=== PATIENT | female | born 1940 | race Caucasian/White ===

== ENCOUNTER 2022-01-18 00:37 | Emergency (ER) | payer OTHER, MEDICAID ==
[~2022-01-18] VITALS: Ht 160 cm; Wt 80.0 kg
[2022-01-18] MEDS ORDERED: ONDANSETRON HCL 4MG/2ML INJ IV STA (01:28)
[2022-01-18] MEDS ORDERED: MORPHINE SULFATE 4 MG/ML CPJ (NOT FOR IM USE) IV STA (01:28)
[2022-01-18 01:53] LABS: CLARITY URINE CLEAR (CLEAR); COLOR URINE YELLOW (YELLOW); KETONES URINE TRACE (NEGATIVE); LEUKOCYTE ESTERASE URINE 2+ (NEGATIVE); NITRITE URINE NEGATIVE (NEGATIVE); OCCULT BLOOD URINE NEGATIVE (NEGATIVE); PH URINE 6.5 (4.5-8.0); PROTEIN URINE NEGATIVE (NEGATIVE); SPECIFIC GRAVITY URINE 1.018 (1.005-1.030)
[2022-01-18 02:34] LABS: BASOPHILS % 0.2 % (0.0-2.0); EOSINOPHILS % 0.7 % (0.0-5.0); HEMATOCRIT. 34.9 % (36.0-48.0); HEMOGLOBIN. 11.7 g/dL (12.0-16.0); LYMPHOCYTES % 19.8 % (20.0-50.0); MEAN CORPUSCULAR VOLUME 92.3 fL (81.0-99.0); MEAN PLATELET VOLUME 9.4 fl (7.4-10.4); MONOCYTES % 5.5 % (2.0-8.0); NEUTROPHILS % 73.8 % (40.0-76.0); PLATELET 241 x1000/uL (130-400); RED BLOOD CELL COUNT 3.78 mill/uL (4.2-5.4); RED CELL DISTRIBUTION WIDTH 13.5 % (11.6-14.6)
[2022-01-18 02:45] LABS: CHLORIDE 100 mEq/L (98-107)
[2022-01-18] MEDS ORDERED: SODIUM CHLORIDE 0.9% 1000ML BAG (SEPSIS BOLUS) IV NR (03:00)
[2022-01-18] MEDS ORDERED: VANCOMYCIN 1.25GM PMX (XELLIA) 250 ML IV NR (03:00)
[2022-01-18] MEDS ORDERED: PIPERACILLIN/TAZOBACTAM 3.375GM/50ML PREMIX IV ONE (03:00)
[2022-01-18] MEDS ORDERED: PIPERACILLIN/TAZ 3.375G PREMIX 50 ML IV NR (03:15)
[2022-01-18 07:45] VITALS: BP 130/56
== END 2022-01-18 11:23 | disposition short-term general hospital (02) ==
LOC: ER 00:37
DX: R10.13 Epigastric pain (principal); E87.2 Acidosis; I95.9 Hypotension, unspecified; Z20.822 Contact with and (suspected) exposure to COVID-19
CPT/HCPCS: 36415; 74176; 80053; 81003; 82962; 83605; 83690; 84484; 85025; 87426; 93005; 96365; 96366; 96368; 96375; 99285; C9803; J2270; J2405; J2543; J3370